=== PATIENT | male | born 1985 | race Two or more races ===

== ENCOUNTER 2018-12-06 21:13 | Emergency (ER) | payer OTHER, SELFPAY ==
[2018-12-06 21:13] VITALS: BP 142/90; PULSE 107; RESP 18; TEMP 36.4; O2SAT 97; BMI 35.5
--- NOTE | 2018-12-06 22:18 | RAD_ITS ---
STUDY: X-RAY CHEST REASON FOR EXAM: Male, 33 years old. Chest congestion TECHNIQUE: PA and lateral COMPARISON: None. FINDINGS: There is interstitial thickening within the lower lobes bilaterally. No focal lobar infiltration is noted.. There is no demonstrated pleural abnormality. Normal size heart. Normal mediastinum and jg. Normal visualized pulmonary arteries. Normal visualized aortic arch and descending thoracic aorta. Normal visualized thoracic spine. Normal visualized ribs, clavicles, and shoulders. There is no demonstrated abnormality of the visualized soft tissue structures of the upper abdomen. RAD/Chest PA and Lateral IMPRESSION: Mild bilateral interstitial thickening in the lower lobes possibly inflammatory. No focal lobar infiltration Electronically Signed: Ryder Rojas MD at 22:52 EDT , Service support ,
[2018-12-06 22:42] VITALS: O2SAT 97
[2018-12-06 22:48] VITALS: PULSE 108; RESP 18
[2018-12-06] MEDS: Ipratropium/Albuterol Sulfate 3 ML AMPUL.NEB INHALATION (22:48)
[2018-12-06 22:49] LABS: D-Dimer Quantitative (DVT/PE) 0.73 FEU/ug/m (0.27-0.49)
--- NOTE | 2018-12-06 22:50 | ED.RN ---
lab called with critical lab results. d dimer 0.70. Dr. Jeffers made aware no new orders at this time
--- NOTE | 2018-12-06 23:29 | CT_ITS ---
HISTORY: FLU LAST WEEK, COUGH WITH CHEST CONGESTION, ELEVATED D-DIMER EXAMINATION: CTA Chest WO/W Contrast Injection TECHNIQUE: Helically acquired images were obtained of the chest following IV contrast as per pulmonary angiogram protocol with 3D reconstructions. A radiation dose optimization technique was used for this scan. IV Contrast dosage and agent: 100ML 100mL Isovue-370 IV 100mL Isovue-370 100ML COMPARISON: None FINDINGS: Left perihilar predominantly groundglass infiltrate compatible with pneumonia. Additional right perihilar patchy low-grade infiltrate. No pleural effusion or significant pleural disease. No pneumothorax. No bronchiectasis. Pulmonary arteries: The main, segmental, and visualized subsegmental pulmonary arteries show normal opacification and appearance. No PE. Thoracic aorta is normal in caliber. No pericardial effusion. Left hilar mildly enlarged 1.2 x 1.3 cm lymph node compatible with a reactive node. Small hiatal hernia. Bones: No acute osseous abnormality. Upper abdomen: No acute disease. CT/CTA Chest W/WO Contrast IMPRESSION: 1. Left lower lobe and right perihilar infiltrates compatible with pneumonia. 2. Left hilar mildly enlarged lymph node compatible with a reactive node. 3. No PE or thoracic aortic dissection. 4. Small hiatal hernia. Individualized dose optimization techniques were used for this CT. at 0038 Reported and signed by: Gonzalez Salinas MD Electronically Signed: Gonzalez Salinas, at 0:37 EDT Tel , Service support ,
--- NOTE | 2018-12-07 00:06 | ED.DCSUM_ITS ---
- ER Visit Summary Date of Service: 12/07/18 Chief Complaint: Cough, congestion History of Present Illness: The patient is a 33 M presenting with cough, congestion. He states this started one week ago. He recently finished a course of Tamiflu that was prescribed by urgent care. He says he was not tested for the flu but was started on Tamiflu for presumed influenza. He has no sick contacts. He has had a productive cough. He denies fever. He has mild shortness of breath. He has pain with deep inspiration. He traveled here from [place] on November 17, no other PE/DVT risk factors. No CAD risk factors. Denies other complaints. Physical Examination: Vitals are stable. Patient is afebrile. Alert no acute distress. HEENT exam is unremarkable. Neck is supple. Lungs are mild expiratory wheezing bilaterally. Heart is regular tachycardic Abdomen is soft nontender nondistended. Extremities are unremarkable. Skin is warm and dry. Remainder of exam is unremarkable. Emergency Department Course and Treatment: Patient was given albuterol, Atrovent aerosol with improvement. Chest x-ray shows mild bilateral interstitial thickening in the lower lobes possibly inflammatory. No focal lobar infiltration. He was given albuterol MDI. D-dimer is 0.73. Patient states he is unable to wait in the ED for CTA results. He left AGAINST MEDICAL ADVICE. His CTA results returned after he left and shows left lower lobe and right perihilar infiltrates compatible with pneumonia. Left hilar mildly enlarged lymph node compatible with a reactive node. No PE or thoracic aortic dissection. I called the patient and he returned to the ED for antibiotics. He was given a dose of Levaquin in the ED and a prescription. Advised to follow-up with primary care physician. Advised return to ED for worsening complaints. Disposition: Discharge home Impression: Pneumonia This note was generated with [employer] dictation software. It may contain incorrect words, spelling, and punctuation that were not noted in review of the chart prior to signing ED Disposition - Plan for ED Patient: Disposition: Against Medical Advice Instructions: PNEUMONIA (Adult) Prescriptions: Levofloxacin [Levaquin] 750 mg PO DAILY #6 tab Prescription Printed Referrals: Care Physician,No Primary [Primary Care Provider] -
[2018-12-07 00:36] VITALS: BP 148/89; PULSE 94; RESP 18; O2SAT 95
--- NOTE | 2018-12-07 00:45 | ED.DEP ---
ED Disposition - Plan for ED Patient: Disposition: Against Medical Advice Instructions: PNEUMONIA (Adult) Prescriptions: Levofloxacin [Levaquin] 750 mg PO DAILY #6 tablet Referrals: Care Physician,No Primary [Primary Care Provider] -
[2018-12-07] MEDS: levoFLOXacin 750 MG Tablet PO (00:50)
--- NOTE | 2018-12-07 00:51 | ED.RN ---
pt was given po levaquin per md order. pt states no further questions and was discharged
== END 2018-12-07 00:43 | disposition left against medical advice (07) ==
PROVIDERS: Emergency Provider Emergency Medicine
DX: J18.9 Pneumonia, unspecified organism (principal); Z53.29 Procedure and treatment not carried out because of patient's decision for other reasons
CPT/HCPCS: 71046; 71275; 85379; 94640; 99284; Q9967; A4216